=== PATIENT | male | born 1965 | race Caucasian/White ===

== ENCOUNTER 2022-06-06 13:52 | Emergency (ER) | payer MEDICARE, MEDICAID, SELFPAY ==
--- NOTE | ~2022-06-06 | XR_ITS ---
EXAMINATION: XR CHEST CLINICAL INFORMATION: Cough. COMPARISON: None TECHNIQUE: 2 views of the chest were obtained. FINDINGS: No significant abnormality is noted involving the heart, lungs, mediastinum, bony thorax or soft tissues. XR/XR chest 2V IMPRESSION: No acute cardiopulmonary process.
[2022-06-06 14:37] VITALS: BP 129/76; PULSE 83; RESP 18; TEMP 36.7; O2SAT 97
--- NOTE | 2022-06-06 14:38 | ED.GENADULT ---
HPI - General Adult General Chief complaint: Upper Respiratory Symptoms Stated complaint: ? Pneumonia Flu Symptoms Time Seen by Provider: 06/06/22 16:30 Source: patient Mode of arrival: ambulatory Limitations: no limitations History of Present Illness HPI narrative: Patient is a 57 year old assigned male at with a history of chronic bronchitis presenting to the emergency department today with a cough and congestion. Patient states that over the last 2 days he has had a cough and congestion. Patient states he has a history of walking pneumonia and chronic bronchitis. Patient denies any dizziness, lightheadedness, abdominal pain, nausea, vomiting, fever, chills, blurry vision, double vision, loss of vision, chest pain, difficulty breathing, shortness of breath, back pain, night sweats, pain with urination, increased urinary frequency, increased urinary urgency, blood in his urine or stool, syncope or a near syncopal episode, recent trauma or falls, bowel incontinence, bladder incontinence, bowel retention, bladder retention, or any other complaints at this time. Onset (ago): day(s) (2) Severity: mild Severity scale (1-10): 2 Relieving factors: none Exacerbating factors: none Associated symptoms: cough Treatments prior to arrival: none Related Data Previous Rx's Medication Instructions Recorded doxycycline hyclate 100 mg tablet 100 mg PO BID 7 days #14 tabs 06/06/22 guaifenesin 600 mg tablet, 600 mg PO BID #14 tabs 06/06/22 extended release 12 hr (Mucinex) prednisone 20 mg tablet 20 mg PO DAILY 7 days #7 tabs 06/06/22 Allergies Allergy/AdvReac Type Severity Reaction Status Date / Time No Known Allergies Allergy Unverified 03/22/20 16:02 Review of Systems Constitutional: Constitutional: Reports no additional constitutional complaints, Denies chills, Denies fever(s) and Denies night sweats Eyes: Eyes: Reports no additional eye complaints, Denies blurry vision, Denies change in vision, Denies diplopia, Denies eye discharge, Denies loss of vision and Denies eye pain ENT: Denies dizziness Cardiovascular: Cardiovascular: Reports no additional cardiovascular complaints, Denies chest pain, Denies lightheadedness, Denies Loss of Consciousness and Denies dyspnea Respiratory: Respiratory: Reports no additional respiratory complaints, Reports cough and Denies dyspnea Gastrointestinal: Gastrointestinal: Reports no additional gastrointestinal complaints, Denies abdominal pain, Denies melena, Denies hematochezia, Denies change in bowel habits and Denies change in stool character Genitourinary: Genitourinary: Reports no additional male genitourinary complaints, Denies hematuria, Denies oliguria, Denies difficulty urinating, Denies dysuria, Denies urinary frequency, Denies urinary hesitancy, Denies urinary incontinence and Denies urinary urgency Musculoskeletal: Musculoskeletal: Reports no additional musculoskeletal complaints, Denies numbness and Denies tingling Neurologic: Denies dizziness, Denies loss of vision, Denies numbness and Denies tingling Psychiatric: Psychiatric: Reports no additional psychiatric complaints Endocrine: Endocrine: Reports no additional endocrine complaints Hematologic/Lymphatic: Hematologic/Lymphatic: Reports no additional hematologic/lymphatic complaints Allergic/Immunologic: Allergic/Immunologic: Reports no additional allergic/immunologic complaints PMFSH Past Medical History Attestation statement: The following information was validated with the patient. Source: old records reviewed and nursing notes reviewed Social History Social History Advance Directives: No Advance Directives Information Provided: No Physical Exam ED Vital Signs: Vital Signs - 24 hr 06/06/22 14:37 Temperature 98.1 F Pulse Rate 83 Respiratory Rate 18 Blood Pressure 129/76 Pulse Oximetry 97 Oxygen Delivery Method Room Air BMI result Body Mass Index 20.0 Const General: cooperative, no acute distress, alert and awake Nutritional Appearance: well nourished Orientation/consciousness: patient oriented x3 Limitations: no limitations HENMT Head: Yes normal to inspection and Yes atraumatic Ears: hearing grossly normal bilaterally and external ears normal General nose exam: Normal external nose present, no nasal discharge noted and no epistaxis Face and sinus: Yes normal facial exam, No abrasion and No laceration Mouth: Normal oral and palatal mucosa present, no drooling and no muffled voice Eyes General: appearance normal, both eyes and all related structures Periorbital: periorbital findings normal Eyelids: Yes eyelids normal Conjunctivae: conjunctivae normal Pupils: Equal, round and reactive pupils present EOM: EOMs intact bilaterally Neck Neck: Yes normal visual inspection, Yes full ROM and Yes no lymphadenopathy Chest Chest palpation & inspection: normal inspection of the chest Resp Effort & Inspection: normal respiratory effort and able to speak in complete sentences Auscultation: clear to auscultation bilaterally Cardio Rate: regular rate Rhythm: regular rhythm GI Inspection: Yes normal to inspection Neuro General: patient oriented x3 and moves all extremities Cranial nerves: Yes Equal, round and reactive pupils present Cognition (Neuro): normal cognition Motor exam (neuro): 5/5 motor strength present throughout Sensory Exam: Normal double simultaneous stimulation for sensation Coordination: [id number] test normal Extrem General: Yes normal to inspection, Yes full ROM and Yes capillary refill normal Psych Appearance: grossly normal Mental Status: mental status grossly normal Affect: normal affect Attitude: cooperative Thought process: Normal thought process present Thought content: Normal thought content present Insight: Good insight present (Psych) Course Course Course Narrative: RME performed by Beth Luque PA-C. Patient is a 57 year old male presenting to the emergency department with a cough and a sore throat. Patient states that he is prone to pneumonia. CXR and COVID/RSV/Influenza swab ordered. Patient placed back in the waiting room pending results and bed availability. Medical Decision Making MDM Narrative Medical decision making narrative: Patient is a 57 year old assigned male at with a history of chronic bronchitis and walking pneumonia presenting to the emergency department today with cough and congestion. Patient's physical exam was unremarkable. Patient's COVID/Influenza/RSV swab was negative. Patient's chest x-ray showed no acute process. I explained my physical exam findings as well as all test results to the patient. I answered all questions asked by the patient. I stressed the importance of the patient taking his medication as prescribed. I stressed the importance of the patient following up with his primary care provider. I stressed the importance of the patient returning to the emergency department immediately if his symptoms were to worsen or if he were to develop any dizziness, shortness of breath, difficulty breathing, chest pain, blurry vision, loss of vision, nausea, vomiting, abdominal pain, fever, chills, back pain, or any other complaints. Patient verbalized agreement and understanding with this treatment plan and discharge. Medical Records Medical records reviewed: Yes I reviewed the patient's medical records. Lab Data Lab results reviewed: Yes I reviewed the patient's lab results. Labs: Lab Results 06/06/22 06/06/22 Range/Units 14:41 14:41 Influenza Type A (PCR) NEGATIVE (Negative) Influenza Type B (PCR) NEGATIVE (Negative) RSV RNA Qual (PCR) NEGATIVE (Negative) SARS-CoV-2 RNA (RT-PCR) NEGATIVE (Negative) S. pyogenes GrpA MALDONADO Negative (Negative) Imaging Data Chest x-ray: Attestation: I personally reviewed and interpreted this imaging study as follows: My impression: No acute process. Radiologist's impression: EXAMINATION: XR CHEST CLINICAL INFORMATION: Cough. COMPARISON: None TECHNIQUE: 2 views of the chest were obtained. FINDINGS: No significant abnormality is noted involving the heart, lungs, mediastinum, bony thorax or soft tissues. XR/XR chest 2V IMPRESSION: No acute cardiopulmonary process. Dictated By: Kunal Moura MD Signed By: Electronically signed by Kunal Moura MD 06/06/22 1509 Discharge Plan Discharge Clinical Impression: Upper respiratory infection Patient Disposition: Home, Self-Care Instructions: Upper Respiratory Infection (ED) Additional Instructions: Follow up with your primary care provider. Return to the emergency department immediately if your symptoms worsen or if you develop any dizziness, shortness of breath, difficulty breathing, chest pain, blurry vision, loss of vision, nausea, vomiting, abdominal pain, fever, chills, back pain, or any other complaints. Prescriptions: New prednisone 20 mg tablet 20 mg PO DAILY 7 Days Qty: 7 0RF doxycycline hyclate 100 mg tablet 100 mg PO BID 7 Days Qty: 14 0RF guaifenesin [Mucinex] 600 mg tablet extended release 12hr 600 mg PO BID Qty: 14 0RF Referrals: Rosendo Peralta MD [Primary Care Provider] - Print Language: Mauritian
[2022-06-06 14:56] LABS: Strep A Nucleic Acid Negative (Negative)
[2022-06-06 15:45] LABS: Influenza A PCR NEGATIVE (Negative); Influenza B PCR NEGATIVE (Negative); Resp Syncy Virus RNA Qual PCR NEGATIVE (Negative); SARS COV2 PCR INHOUSE NEGATIVE (Negative)
== END 2022-06-06 16:36 | disposition home or self-care (01) ==
LOC: HO.ED 16:35
PROVIDERS: Physician Assistant Medical; Emergency Provider Emergency Medicine Emergency Medical Services; PCP Internal Medicine
DX: J06.9 Acute upper respiratory infection, unspecified (principal); R05.9 Cough, unspecified; Z20.822 Contact with and (suspected) exposure to COVID-19; Z79.899 Other long term (current) drug therapy
CPT/HCPCS: 0241U; 36415; 71046; 87651; 99282; 99283

== ENCOUNTER 2022-08-05 12:50 | Outpatient (REF) | payer MEDICARE, MEDICAID, SELFPAY ==
[2022-08-05 13:14] LABS: COVID-19 Test Positive (Negative); IDNOW Serial# BCCEAD1C
== END 2022-08-05 12:51 | disposition home or self-care (01) ==
LOC: HO.LAB 12:50
PROVIDERS: Visit Provider Internal Medicine
DX: Z20.822 Contact with and (suspected) exposure to COVID-19 (principal)
CPT/HCPCS: 87635; C9803